=== PATIENT | female | born 2000 | race African-American/Black ===

== ENCOUNTER 2023-07-16 23:32 | Observation (INO) | payer OTHER ==
[2023-07-17] MEDS ORDERED: Sodium Chloride 0.9% 1,000 ML IV SCH (04:15)
[2023-07-17] MEDS ORDERED: Ondansetron PF 4 MG/2 ML Vial IVP PRN ×2 (04:15→11:30)
[2023-07-17] MEDS ORDERED: Ondansetron ODT 4 MG TAB SL PRN (04:15)
[2023-07-17 04:26] VITALS: BMI 39.4
[2023-07-17] MEDS ORDERED: EPINEPHrine 1 MG/ML VIAL ONE (09:28)
[2023-07-17] MEDS ORDERED: Bupivacaine 0.25% HCL 30 ML VIAL ONE (09:28)
[2023-07-17] MEDS ORDERED: Midazolam HCl 2 mg/2 ml Vial ONE (09:31)
[2023-07-17] MEDS ORDERED: HYDROmorphone 0.5 MG/0.5 ML SYRINGE ONE (09:31)
[2023-07-17] MEDS ORDERED: fentaNYL PF 100 MCG/2 ML SYRINGE ONE (09:31)
[2023-07-17] MEDS ORDERED: Sodium Chloride 0.9% 100 ML ONE (09:53)
[2023-07-17] MEDS ORDERED: Piperacillin/Tazobactam 3.375 GM VIAL ONE (09:53)
[2023-07-17] MEDS ORDERED: Ondansetron PF 4 MG/2 ML Vial ONE (10:05)
[2023-07-17] MEDS ORDERED: Ketorolac Tromethamine 30 MG/ML VIAL ONE (10:05)
[2023-07-17] MEDS ORDERED: Lidocaine 1% PF 5 ML VIAL ONE (10:05)
[2023-07-17] MEDS ORDERED: Succinylcholine Chloride 100 MG/5 ML SYRINGE FS ONE (10:05)
[2023-07-17] MEDS ORDERED: Rocuronium Bromide 10 MG/ML (10ML VIAL) ONE (10:05)
[2023-07-17] MEDS ORDERED: Dexamethasone 20 MG/5 ML VIAL ONE (10:05)
[2023-07-17] MEDS ORDERED: PROPOFOL 200 MG/20 ML VIAL ONE (10:05)
[2023-07-17] MEDS ORDERED: SUGAMMADEX SODIUM 200 MG/2 ML VIAL ONE (10:21)
[2023-07-17] MEDS ORDERED: Ondansetron HCl/PF 4 MG/2 ML Vial IVP PRN (11:24)
[2023-07-17] MEDS ORDERED: HYDROmorphone 2 MG/ML VIAL SLOW IVP PRN (11:24)
[2023-07-17] MEDS ORDERED: Promethazine HCl 25 MG/ML VIAL IM PRN ×2 (11:24→11:30)
[2023-07-17] MEDS ORDERED: hydrALAZINE 20 MG/ML VIAL SLOW IVP PRN (11:30)
[2023-07-17] MEDS ORDERED: Glucagon 1 MG/ML KIT IM PRN (11:30)
[2023-07-17] MEDS ORDERED: Dextrose 5% in Water 1,000 ML IV PRN (11:30)
[2023-07-17] MEDS ORDERED: Ipratropium/Albuterol 3 ML NEB NEB PRN (11:30)
[2023-07-17] MEDS ORDERED: Dextrose 50% Abboject 50 ML SYRINGE SLOW IVP PRN (11:30)
[2023-07-17] MEDS ORDERED: traMADol HCl 50 MG TAB PO PRN (11:35)
[2023-07-17] MEDS ORDERED: Ibuprofen 200 MG TAB PO PRN (11:36)
[2023-07-17] MEDS ORDERED: Acetaminophen 500 MG TAB PO SCH (12:00)
[2023-07-17 12:32] VITALS: BP 129/82; TEMP 97.6
[2023-07-17] MEDS ORDERED: Famotidine 20 MG TAB PO SCH (21:00)
[2023-07-17] MEDS ORDERED: Famotidine/PF 20 mg/2ml Vial SLOW IVP SCH (21:00)
== END 2023-07-17 15:20 | disposition home or self-care (01) ==
LOC: SURG A 23:32
PROVIDERS: ADMIT Student in an Organized Health Care Education/Training Program; ATTEND Student in an Organized Health Care Education/Training Program
PROC: 0DTJ4ZZ Resection of Appendix, Percutaneous Endoscopic Approach (ICD-10-PCS; principal; 2023-07-17)
DX: K35.30 Acute appendicitis with localized peritonitis, without perforation or gangrene (principal); E66.9 Obesity, unspecified; F12.10 Cannabis abuse, uncomplicated; Z68.39 Body mass index [BMI] 39.0-39.9, adult; Z87.59 Personal history of other complications of pregnancy, childbirth and the puerperium; F17.210 Nicotine dependence, cigarettes, uncomplicated; Z79.899 Other long term (current) drug therapy
CPT/HCPCS: 88304; G0378; J0171; J1100; J1170; J1885; J2250; J2405; J2543; J2704; J3490; J7050; S0020

== ENCOUNTER 2024-09-27 12:18 | Outpatient (CLI) | payer OTHER | END 2024-09-27 12:19 | disposition home or self-care (01) | LOC: ULT 12:18 | PROVIDERS: ATTEND Family Medicine | DX: O09.893 Supervision of other high risk pregnancies, third trimester (principal); O32.8XX0 Maternal care for other malpresentation of fetus, not applicable or unspecified; Z3A.30 30 weeks gestation of pregnancy | CPT/HCPCS: 76805 ==